=== PATIENT | male | born 1950 | race Caucasian/White ===

== ENCOUNTER 2017-04-29 07:44 | Emergency (ER) | payer MEDICARE, OTHER ==
--- NOTE | ~2017-04-29 | ER ---
PATIENT'S NAME: GREER QUINTANA [facility] AGE: 66 Y [address] ROOM: [place] [id number] LOCATION: [facility] ADMIT DATE: 04/29/2017 ER/Outpatient Report DISCHARGE DATE: 04/29/2017 FAMILY PHYSICIAN: Osiel Morse MD ATTENDING PHYSICIAN: Av Martinez CHIEF COMPLAINT: Chest pain and shortness of breath. HISTORY OF PRESENT ILLNESS: Mr. Quintana notes that he has not felt well for the last five or so hours since waking up. He came in his direction of his primary care provider, Dr. Morse in [place]. He has a sharp pain in his chest that started after he started vomiting. The pain is now also in his back. It seems to get worse with every time that he vomits. He otherwise feels okay. He does have a history of heart stent as well as a renal cell carcinoma status post left nephrectomy. He also has hypertension and yym-[id number] diabetes. As far he knows he is otherwise doing okay. He did not take his medicines today. PAST MEDICAL HISTORY: Documented on the record and reviewed by me. SOCIAL HISTORY: Documented on the record and reviewed by me. MEDICATIONS: Documented on the record and reviewed by me. ALLERGIES: DOCUMENTED ON THE RECORD AND REVIEWED BY ME. REVIEW OF SYSTEMS: All systems reviewed and negative except as noted in the HPI. PHYSICAL EXAMINATION: VITAL SIGNS: Blood pressure 176/90, pulse is 85, respiratory rate 21, temp 97.4, SpO2 is 94% on room air. Pain is rated 5/10. GENERAL: Age-appropriate male, sitting upright on exam table, in no apparent pain or distress. NEURO: Awake and alert. GCS 15. No focal deficits. No asymmetry. No gait abnormalities. HEENT: Normocephalic, atraumatic. Eyes are PERRL. Oropharynx is clear. NECK: Supple. Trachea is midline. CHEST/HEART: Regular rate and rhythm. No murmurs. LUNGS: Clear to auscultation bilateral. No rhonchi, wheezes, or rales. PATIENT'S NAME: GREER QUINTANA [facility] AGE: 66 Y [address] ROOM: [place], [place] [address] LOCATION: ED ADMIT DATE: 04/29/2017 ER/Outpatient Report DISCHARGE DATE: 04/29/2017 FAMILY PHYSICIAN: Osiel Morse MD ATTENDING PHYSICIAN: Av Martinez ABDOMEN: Soft, nontender, and nondistended. No rebound or guarding. BACK: Normal to inspection and palpation. EXTREMITIES: Warm and well perfused. No cyanosis, deformities, or edema. SKIN: Clean, dry, and intact. LABS AND X-RAYS: Initial and repeat troponin are not elevated. EKG reveals sinus rhythm with first-degree heart block and otherwise remained stable while in the emergency department. His creatinine is 1.4. Baseline is around 1.4 to 1.3, and GFR however is slightly below 60, this is unusual for him. For those reasons, he received a V/Q scan to evaluate for possible PE and his D-dimer was elevated at 0.82. The V/Q scan was read as very low probability by Radiology. His risk factors for that included active cancer, shortness of breath, and unusual chest pain. I am not sure what causes vomiting but he states that it has been an issue for the last several days because of his cancer treatment. In any case, I do not think this is related to his heart. It is fits better with his vomiting. He has been asymptomatic while in the emergency department for several hours. There was marked delay in getting the report on his V/Q scan. All questions were answered and the patient was ultimately discharged with plans to follow up with his primary care provider as soon as possible at home. I did discuss this with Dr. Morse, his primary care provider. He is up to date. AV MARTINEZ MD JH/modl /[id number] d: 04/30/17 1511 t: 05/13/17 1000, OUTPATIENT REPORT
[~2017-04-29 07:44] MED LIST: AMARYL2 M1 PO; GLUCOPHAGE1000 MG PO; LOPRESSOR50 M1 PO; MULTI VITAMIN1 EACH PO; PRINIVIL10 MG PO; PROTONIX40 MG PO; ULTRAM50 MG PO; XIGDUO XR 10 M1 EACH PO
[2017-04-29 08:05] LABS: BASOPHIL % 0.4 %; EOSINOPHIL # 0.1 K/uL (0.0-0.5); EOSINOPHIL % 2.1 %; HEMATOCRIT 41.1 % (37.0-53.0); HEMOGLOBIN 14.3 g/dL (11.0-16.0); IMMATURE GRANULOCYTE % 0.8 %; LYMPHOCYTE # 1.7 K/uL (0.8-4.0); LYMPHOCYTE % 32.6 %; MCH 34.3 pg (27.0-34.0); MCHC 34.8 gm/dL (32.0-36.5); MCV 98.6 fl (83.0-98.0); MONOCYTE # 0.5 K/uL (0.0-1.0); MONOCYTE % 8.7 %; MPV 9.7 fl (9.4-12.4); NEUTROPHIL # (ANC) 2.9 K/uL (1.4-9.0); NEUTROPHIL % 55.4 %; NRBC % 0 /100WBC (0-0.00); PLATELET COUNT 161 K/uL (150-450); RBC 4.17 M/uL (3.50-5.50); RDW-CV 13.4 % (11.9-14.6); WBC 5.2 K/uL (4.0-11.0)
[2017-04-29 08:16] LABS: PROTIME 9.4 SECONDS (9.8-11.4); PTT 25 SECONDS (25-32)
[2017-04-29 08:23] LABS: ALBUMIN 3.4 gm/dL (3.5-5.0); ALK PHOS 84 IU/L (33-138); ALT 66 IU/L (12-78); BLOOD UREA NITROGEN 27 mg/dL (6-24); CALCIUM 9.3 mg/dL (8.5-10.5); CHLORIDE 100 mMol/L (96-110); CO2 21 mMol/L (22-32); CPK 61 IU/L (35-332); CREATININE 1.4 mg/dL (0.6-1.3); SODIUM 133 mMol/L (135-145); TOTAL BILIRUBIN 0.4 mg/dL (0.0-1.5); TOTAL PROTEIN 7.7 g/dL (6.0-8.4)
[2017-04-29 08:25] LABS: ANION GAP 16.3 (10.0-19.0); AST 39 IU/L (10-40); MAGNESIUM 1.9 mg/dL (1.8-2.6); POTASSIUM 4.3 mMol/L (3.7-5.1)
[2017-04-29 10:35] LABS: CPK 65 IU/L (35-332)
== END 2017-04-29 13:06 | disposition disaster alternative care site (69) ==
LOC: GMED 07:44
PROVIDERS: Emergency Medicine
DX: R07.9 Chest pain, unspecified (principal); I10 Essential (primary) hypertension; E11.9 Type 2 diabetes mellitus without complications; K21.9 Gastro-esophageal reflux disease without esophagitis; F17.200 Nicotine dependence, unspecified, uncomplicated; Z79.891 Long term (current) use of opiate analgesic; Z79.899 Other long term (current) drug therapy; Z98.890 Other specified postprocedural states; Z95.818 Presence of other cardiac implants and grafts; Z90.5 Acquired absence of kidney; Z88.0 Allergy status to penicillin
CPT/HCPCS: A9540

== ENCOUNTER → 2017-04-30 | Outpatient (CLI) | payer MEDICARE, OTHER | END | disposition disaster alternative care site (69) | LOC: GRAD 13:06 | DX: R07.9 Chest pain, unspecified (principal); C64.9 Malignant neoplasm of unspecified kidney, except renal pelvis; C78.2 Secondary malignant neoplasm of pleura; C78.01 Secondary malignant neoplasm of right lung; C79.71 Secondary malignant neoplasm of right adrenal gland; K76.0 Fatty (change of) liver, not elsewhere classified; K22.8 Other specified diseases of esophagus | CPT/HCPCS: Q9967 ==

== ENCOUNTER → 2017-06-09 | Outpatient (CLI) | payer MEDICARE, OTHER | END | disposition disaster alternative care site (69) | LOC: GRAD 09:54 | DX: C64.2 Malignant neoplasm of left kidney, except renal pelvis (principal); R11.2 Nausea with vomiting, unspecified | CPT/HCPCS: Q9967 ==